=== PATIENT | male | born 1955 | race Caucasian/White ===

== ENCOUNTER 2025-06-27 20:51 | Inpatient (IN) | payer OTHER ==
[~2025-06-27 20:51] MED LIST: Iopamidol 370 76% 100 ML VIAL ONE
[2025-06-27] MEDS ORDERED: Ondansetron PF 4 MG/2 ML Vial ONE (21:29)
[2025-06-27] MEDS ORDERED: HYDROmorphone 0.5 MG/0.5 ML SYRINGE ONE (21:32)
[2025-06-27 21:43] LABS: #Basophils Less than 0.03 10x3/uL (0.0-0.2); #Eosinophils Less than 0.03 10x3/uL (0.0-0.7); #Monocytes 1.13 10x3/uL (0.11-0.59); #Neutrophils 5.80 10x3/uL (1.40-6.50); %Basophils 0.3 % (0.0-1.0); %Eosinophils 0.3 % (0.0-10.0); %Lymphocytes 9.7 % (21.0-51.0); %Monocytes 14.6 % (0.0-10.0); %Neutrophils 74.6 % (42.0-75.0); Hematocrit 31.2 % (42.0-52.0); Hemoglobin 10.8 g/dL (14.0-18.0); Mean Corpuscular Hemoglobin 31.7 pg (27.0-31.0); Mean Corpuscular Volume 91.5 fL (78.0-98.0); Platelet Count 193 10x3/uL (130-400); Red Blood Cell (RBC) Count 3.41 mill/uL (4.70-6.10); White Blood Cell (WBC) Count 7.76 10x3/uL (4.8-10.8)
[2025-06-27 22:10] LABS: ALT (SGPT) 9 U/L (Less than 45); AST (SGOT) 33 U/L (11-34); Albumin 4.0 g/dL (3.1-4.5); Alkaline Phosphatase 70 U/L (40-110); Anion Gap 23 mmol/L (10-20); BUN (Urea Nitrogen) 27 mg/dL (8.4-25.7); Bilirubin, Total 0.6 mg/dL (0.3-1.2); Calc. Creatinine Clearance 0 mL/min (70-130); Calcium 9.6 mg/dL (7.8-10.44); Carbon Dioxide 19 mmol/L (23-31); Chloride 105 mmol/L (98-107); Globulin 3.3 g/dL (2.4-3.5); Glucose 219 mg/dL (83-110); Lipase 8 U/L (8-78); Potassium 3.5 mmol/L (3.5-5.1); Sodium 143 mmol/L (136-145)
[2025-06-27 22:19] LABS: INR-International Normal Ratio 1.7; Prothrombin Time 20.4 sec (12.0-14.7)
[2025-06-27 22:21] LABS: PTT 43.6 sec (22.9-36.1)
[2025-06-28 01:11] LABS: Bacteria/HPF 1+ HPF (None Seen); CAUTI Indications for Culture Acute Hematuria; Glucose, Urine (Dipstick) Normal (Negative); Leukocyte 25 Leu/uL (Negative); Protein, Urine (Dipstick) Negative (Neg-Trace); RBC/HPF 0-3 HPF (0-3); Specific Gravity, Urine 1.027 (1.002-1.036); WBC/HPF 0-3 HPF (0-3)
[2025-06-28 01:12] LABS: Urine Culture Reflex No No
[2025-06-28] MEDS: Metoclopramide HCl 10 MG (2 mL) VIAL IVP PRN (03:10)
[2025-06-28 03:17] VITALS: BMI 23.6
[2025-06-28 04:02] LABS: #Basophils Less than 0.03 10x3/uL (0.0-0.2); #Eosinophils Less than 0.03 10x3/uL (0.0-0.7); #Monocytes 1.05 10x3/uL (0.11-0.59); #Neutrophils 4.32 10x3/uL (1.40-6.50); %Basophils 0.3 % (0.0-1.0); %Eosinophils 0.3 % (0.0-10.0); %Lymphocytes 12.4 % (21.0-51.0); %Monocytes 16.9 % (0.0-10.0); %Neutrophils 69.5 % (42.0-75.0); Hematocrit 33.1 % (42.0-52.0); Hemoglobin 11.0 g/dL (14.0-18.0); Mean Corpuscular Hemoglobin 31.3 pg (27.0-31.0); Mean Corpuscular Volume 94.3 fL (78.0-98.0); Platelet Count 175 10x3/uL (130-400); Red Blood Cell (RBC) Count 3.51 mill/uL (4.70-6.10); White Blood Cell (WBC) Count 6.22 10x3/uL (4.8-10.8)
[2025-06-28 04:38] LABS: ALT (SGPT) 8 U/L (Less than 45); AST (SGOT) 16 U/L (11-34); Albumin 3.9 g/dL (3.1-4.5); Alkaline Phosphatase 67 U/L (40-110); Anion Gap 21 mmol/L (10-20); BUN (Urea Nitrogen) 25 mg/dL (8.4-25.7); Bilirubin, Total 0.5 mg/dL (0.3-1.2); Calc. Creatinine Clearance 50 mL/min (70-130); Calcium 9.4 mg/dL (7.8-10.44); Carbon Dioxide 20 mmol/L (23-31); Chloride 109 mmol/L (98-107); Globulin 2.8 g/dL (2.4-3.5); Glucose 155 mg/dL (83-110); Potassium 3.0 mmol/L (3.5-5.1); Sodium 147 mmol/L (136-145)
[2025-06-28] MEDS: cefTRIAXone\\ROCEPHIN 2 GM in Sodium Chloride 0.9% 100 ML IVPB SCH (04:45)
[2025-06-28 05:14] LABS: Digoxin 0.28 ng/mL (0.8-2.0)
[2025-06-28] MEDS: Tacrolimus 0.5 MG CAP PO SCH (05:26)
[2025-06-28 05:56] LABS: INR-International Normal Ratio 1.7; Prothrombin Time 19.8 sec (12.0-14.7)
[2025-06-28 05:57] LABS: PTT 55.1 sec (22.9-36.1)
[2025-06-28] MEDS: Digoxin 0.125 MG TAB PO SCH ×2 (08:23→09:54)
[2025-06-28] MEDS: Fluconazole 100 MG TAB PO SCH ×2 (08:26→09:54)
[2025-06-28] MEDS ORDERED: Fluconazole 100 MG TAB PO SCH (09:00)
[2025-06-28] MEDS: Senokot S 8.6-50 MG TAB PO SCH (09:55)
[2025-06-28] MEDS ORDERED: hydrALAZINE 20 MG/ML VIAL SLOW IVP PRN (10:05)
[2025-06-28] MEDS ORDERED: Potassium Chloride 40 MEQ in Premix 1 BAG IVPB SCH (10:15)
[2025-06-28] MEDS: Magnesium 2 GM/50 ML(in water) 2 GM in Premix 1 BAG IVPB SCH (10:18)
[2025-06-28] MEDS: MULTIVIT/IRON SULF/FOLIC ACID 1 EACH TAB PO SCH (10:35)
[2025-06-28] MEDS: Cholecalciferol 1,000 UNITS (25 MCG) TAB PO SCH (10:35)
[2025-06-28] MEDS: Pantoprazole 40 MG DR.TAB PO SCH (10:36)
[2025-06-28] MEDS: dilTIAZem 25 MG/5 ML VIAL SLOW IVP SCH (11:30)
[2025-06-28] MEDS: Scopolamine 1 mg/72 hour Patch TD SCH (11:40)
[2025-06-28] MEDS: Potassium Chloride 20 MEQ in Premix 1 BAG IVPB SCH (11:46)
[2025-06-28] MEDS: Diltiazem HCl/D5W 125 MG in Premix 1 BAG IVPB SCH ×2 (12:18→20:48)
[2025-06-28] MEDS: Warfarin Sodium 0.5 MG HALF.TAB PO SCH (17:54)
[2025-06-28] MEDS: QUEtiapine 25 MG TAB PO SCH (20:45)
[2025-06-28 20:56] LABS: Albumin 3.8 g/dL (3.1-4.5); Anion Gap 19 mmol/L (10-20); BUN (Urea Nitrogen) 15 mg/dL (8.4-25.7); BUN/Creatinine Ratio 12.82; Calc. Creatinine Clearance 58 mL/min (70-130); Calcium 9.2 mg/dL (7.8-10.44); Carbon Dioxide 22 mmol/L (23-31); Chloride 111 mmol/L (98-107); Glucose 181 mg/dL (83-110); Magnesium 1.8 mg/dL (1.6-2.6); Potassium 3.5 mmol/L (3.5-5.1); Sodium 148 mmol/L (136-145)
[2025-06-29 04:07] LABS: #Basophils Less than 0.03 10x3/uL (0.0-0.2); #Eosinophils 0.05 10x3/uL (0.0-0.7); #Monocytes 0.70 10x3/uL (0.11-0.59); #Neutrophils 3.23 10x3/uL (1.40-6.50); %Basophils 0.2 % (0.0-1.0); %Eosinophils 1.1 % (0.0-10.0); %Lymphocytes 14.6 % (21.0-51.0); %Monocytes 14.8 % (0.0-10.0); %Neutrophils 68.2 % (42.0-75.0); Hematocrit 31.7 % (42.0-52.0); Hemoglobin 10.3 g/dL (14.0-18.0); Mean Corpuscular Hemoglobin 31.7 pg (27.0-31.0); Mean Corpuscular Volume 97.5 fL (78.0-98.0); Platelet Count 142 10x3/uL (130-400); Red Blood Cell (RBC) Count 3.25 mill/uL (4.70-6.10); White Blood Cell (WBC) Count 4.73 10x3/uL (4.8-10.8)
[2025-06-29 04:40] LABS: Anion Gap 14 mmol/L (10-20); BUN (Urea Nitrogen) 16 mg/dL (8.4-25.7); CRP, High Sensitivity at Bryan 9.42 mg/dL (< or = 0.5); Calc. Creatinine Clearance 58 mL/min (70-130); Carbon Dioxide 24 mmol/L (23-31); Chloride 111 mmol/L (98-107); Potassium 3.3 mmol/L (3.5-5.1); Sodium 146 mmol/L (136-145)
[2025-06-29 04:41] LABS: Calcium 9.1 mg/dL (7.8-10.44); Glucose 105 mg/dL (83-110); Magnesium 1.8 mg/dL (1.6-2.6)
[2025-06-29 04:52] LABS: INR-International Normal Ratio 1.8; Prothrombin Time 20.7 sec (12.0-14.7)
[2025-06-29 04:53] LABS: PTT 54.5 sec (22.9-36.1)
[2025-06-29] MEDS: Potassium Chloride 20 MEQ in Premix 1 BAG IVPB SCH ×2 (06:56→09:32)
[2025-06-29 09:04] LABS: ALT (SGPT) Less than 7 U/L (Less than 45); AST (SGOT) 17 U/L (11-34); Albumin 3.6 g/dL (3.1-4.5); Alkaline Phosphatase 58 U/L (40-110); Bilirubin, Total 0.4 mg/dL (0.3-1.2); Globulin 2.7 g/dL (2.4-3.5)
[2025-06-30 04:15] LABS: #Basophils Less than 0.03 10x3/uL (0.0-0.2); #Eosinophils 0.06 10x3/uL (0.0-0.7); #Monocytes 0.49 10x3/uL (0.11-0.59); #Neutrophils 3.17 10x3/uL (1.40-6.50); %Basophils 0.2 % (0.0-1.0); %Eosinophils 1.4 % (0.0-10.0); %Lymphocytes 12.4 % (21.0-51.0); %Monocytes 11.4 % (0.0-10.0); %Neutrophils 74.1 % (42.0-75.0); Hematocrit 26.0 % (42.0-52.0); Hemoglobin 8.6 g/dL (14.0-18.0); Mean Corpuscular Hemoglobin 31.6 pg (27.0-31.0); Mean Corpuscular Volume 95.6 fL (78.0-98.0); Platelet Count 130 10x3/uL (130-400); Red Blood Cell (RBC) Count 2.72 mill/uL (4.70-6.10); White Blood Cell (WBC) Count 4.28 10x3/uL (4.8-10.8)
[2025-06-30 04:19] LABS: Anion Gap 14 mmol/L (10-20); BUN (Urea Nitrogen) 17 mg/dL (8.4-25.7); Calc. Creatinine Clearance 53 mL/min (70-130); Calcium 8.2 mg/dL (7.8-10.44); Carbon Dioxide 26 mmol/L (23-31); Chloride 106 mmol/L (98-107); Glucose 138 mg/dL (83-110); Potassium 3.4 mmol/L (3.5-5.1); Sodium 143 mmol/L (136-145)
[2025-06-30 04:24] LABS: INR-International Normal Ratio 1.9; Prothrombin Time 22.3 sec (12.0-14.7)
[2025-06-30 04:25] LABS: PTT 61.2 sec (22.9-36.1)
[2025-06-30 05:35] LABS: ALT (SGPT) Less than 7 U/L (Less than 45); AST (SGOT) 14 U/L (11-34); Albumin 3.1 g/dL (3.1-4.5); Alkaline Phosphatase 51 U/L (40-110); Anion Gap 13 mmol/L (10-20); BUN (Urea Nitrogen) 17 mg/dL (8.4-25.7); Bilirubin, Total 0.2 mg/dL (0.3-1.2); Calc. Creatinine Clearance 55 mL/min (70-130); Calcium 8.3 mg/dL (7.8-10.44); Carbon Dioxide 26 mmol/L (23-31); Chloride 105 mmol/L (98-107); Globulin 2.3 g/dL (2.4-3.5); Glucose 136 mg/dL (83-110); Potassium 3.3 mmol/L (3.5-5.1); Sodium 141 mmol/L (136-145)
[2025-06-30] MEDS: HYDROcodone/Acetaminophen 7.5/325 mg Tablet PO PRN (06:18)
[2025-06-30 07:43] LABS: Magnesium 1.2 mg/dL (1.6-2.6)
[2025-06-30 07:44] LABS: Iron 57 ug/dL (65-175); Iron Binding Capacity, Total 206 mcg/dL (261-462)
[2025-06-30] MEDS: Potassium Bicarbonate/Cit Ac 20 MEQ TAB PO SCH (08:16)
[2025-06-30] MEDS: Magnesium Sulfate In Water 4 GM in Premix 1 BAG IVPB SCH (08:17)
[2025-06-30] MEDS ORDERED: Entecavir [Baraclude] 0.5 MG Tablet PO SCH (09:00)
[2025-06-30] MEDS: Methocarbamol 500 MG TAB PO PRN (09:46)
[2025-06-30] MEDS: Sodium Ferric Gluconate 250 MG in Sodium Chloride 0.9% 250 ML 250 ML IVPB SCH (18:25)
[2025-07-01 04:41] LABS: #Basophils Less than 0.03 10x3/uL (0.0-0.2); #Eosinophils 0.12 10x3/uL (0.0-0.7); #Monocytes 0.66 10x3/uL (0.11-0.59); #Neutrophils 3.33 10x3/uL (1.40-6.50); %Basophils 0.4 % (0.0-1.0); %Eosinophils 2.4 % (0.0-10.0); %Lymphocytes 15.3 % (21.0-51.0); %Monocytes 13.4 % (0.0-10.0); %Neutrophils 67.9 % (42.0-75.0); Hematocrit 31.0 % (42.0-52.0); Hemoglobin 10.6 g/dL (14.0-18.0); Mean Corpuscular Hemoglobin 31.8 pg (27.0-31.0); Mean Corpuscular Volume 93.1 fL (78.0-98.0); Platelet Count 133 10x3/uL (130-400); Red Blood Cell (RBC) Count 3.33 mill/uL (4.70-6.10); White Blood Cell (WBC) Count 4.91 10x3/uL (4.8-10.8)
[2025-07-01 04:49] LABS: INR-International Normal Ratio 1.9; Prothrombin Time 21.6 sec (12.0-14.7)
[2025-07-01 04:51] LABS: PTT 60.8 sec (22.9-36.1)
[2025-07-01 05:11] LABS: Anion Gap 11 mmol/L (10-20); BUN (Urea Nitrogen) 15 mg/dL (8.4-25.7); Calc. Creatinine Clearance 61 mL/min (70-130); Calcium 8.5 mg/dL (7.8-10.44); Carbon Dioxide 28 mmol/L (23-31); Chloride 108 mmol/L (98-107); Glucose 103 mg/dL (83-110); Magnesium 1.4 mg/dL (1.6-2.6); Potassium 3.1 mmol/L (3.5-5.1); Sodium 144 mmol/L (136-145)
[2025-07-01 06:21] LABS: ALT (SGPT) Less than 7 U/L (Less than 45); AST (SGOT) 16 U/L (11-34); Albumin 3.2 g/dL (3.1-4.5); Alkaline Phosphatase 55 U/L (40-110); Anion Gap 17 mmol/L (10-20); BUN (Urea Nitrogen) 16 mg/dL (8.4-25.7); Bilirubin, Total 0.2 mg/dL (0.3-1.2); Calc. Creatinine Clearance 65 mL/min (70-130); Calcium 8.4 mg/dL (7.8-10.44); Carbon Dioxide 24 mmol/L (23-31); Chloride 107 mmol/L (98-107); Globulin 2.7 g/dL (2.4-3.5); Glucose 104 mg/dL (83-110); Potassium 3.1 mmol/L (3.5-5.1); Sodium 145 mmol/L (136-145)
[2025-07-01] MEDS: Magnesium Sulfate In Water 4 GM in Premix 1 BAG IVPB SCH ×2 (06:38→08:34)
[2025-07-01] MEDS: PHOS-NAK 1 PKT PACK PO SCH (08:35)
[2025-07-01] MEDS ORDERED: Prochlorperazine 10 MG/2 ML VIAL SLOW IVP PRN (15:04)
[2025-07-01] MEDS ORDERED: Potassium Chloride 40 MEQ in Premix 1 BAG IVPB SCH (15:15)
[2025-07-01] MEDS: Potassium Chloride 20 MEQ in Premix 1 BAG IVPB SCH (15:56)
[2025-07-02 04:10] LABS: #Basophils Less than 0.03 10x3/uL (0.0-0.2); #Eosinophils 0.09 10x3/uL (0.0-0.7); #Monocytes 0.49 10x3/uL (0.11-0.59); #Neutrophils 2.64 10x3/uL (1.40-6.50); %Basophils 0.5 % (0.0-1.0); %Eosinophils 2.3 % (0.0-10.0); %Lymphocytes 16.6 % (21.0-51.0); %Monocytes 12.5 % (0.0-10.0); %Neutrophils 67.6 % (42.0-75.0); Hematocrit 28.3 % (42.0-52.0); Hemoglobin 8.9 g/dL (14.0-18.0); Mean Corpuscular Hemoglobin 31.4 pg (27.0-31.0); Mean Corpuscular Volume 100.0 fL (78.0-98.0); Platelet Count 121 10x3/uL (130-400); Red Blood Cell (RBC) Count 2.83 mill/uL (4.70-6.10); White Blood Cell (WBC) Count 3.91 10x3/uL (4.8-10.8)
[2025-07-02 04:19] LABS: INR-International Normal Ratio 2.0; Prothrombin Time 22.9 sec (12.0-14.7)
[2025-07-02 04:20] LABS: PTT 57.7 sec (22.9-36.1)
[2025-07-02 04:30] LABS: Anion Gap 11 mmol/L (10-20); BUN (Urea Nitrogen) 17 mg/dL (8.4-25.7); Calc. Creatinine Clearance 63 mL/min (70-130); Calcium 8.2 mg/dL (7.8-10.44); Carbon Dioxide 25 mmol/L (23-31); Chloride 109 mmol/L (98-107); Glucose 94 mg/dL (83-110); Magnesium 1.6 mg/dL (1.6-2.6); Potassium 3.8 mmol/L (3.5-5.1); Sodium 141 mmol/L (136-145)
[2025-07-02 04:49] LABS: ALT (SGPT) Less than 7 U/L (Less than 45); AST (SGOT) 13 U/L (11-34); Albumin 3.0 g/dL (3.1-4.5); Alkaline Phosphatase 48 U/L (40-110); Anion Gap 15 mmol/L (10-20); BUN (Urea Nitrogen) 18 mg/dL (8.4-25.7); Bilirubin, Total 0.2 mg/dL (0.3-1.2); Calc. Creatinine Clearance 61 mL/min (70-130); Calcium 8.3 mg/dL (7.8-10.44); Carbon Dioxide 24 mmol/L (23-31); Chloride 109 mmol/L (98-107); Globulin 2.1 g/dL (2.4-3.5); Glucose 94 mg/dL (83-110); Potassium 3.8 mmol/L (3.5-5.1); Sodium 144 mmol/L (136-145)
[2025-07-02 05:07] LABS: Burr Cells SLIGHT = 2-5 cells HPF (0-1); Macrocytosis SLIGHT = 6-15 cells HPF (0-5); Platelet Adequacy Comment Platelets Decreased
[2025-07-02] MEDS: Magnesium Sulfate In Water 4 GM in Premix 1 BAG IVPB SCH (09:29)
[2025-07-02] MEDS: Magnesium Oxide 400 MG TAB PO SCH (09:30)
[2025-07-02] MEDS: hydrALAZINE 20 MG/ML VIAL SLOW IVP PRN (16:48)
[2025-07-03 05:09] LABS: #Basophils Less than 0.03 10x3/uL (0.0-0.2); #Eosinophils 0.12 10x3/uL (0.0-0.7); #Monocytes 0.53 10x3/uL (0.11-0.59); #Neutrophils 3.07 10x3/uL (1.40-6.50); %Basophils 0.2 % (0.0-1.0); %Eosinophils 2.8 % (0.0-10.0); %Lymphocytes 12.4 % (21.0-51.0); %Monocytes 12.4 % (0.0-10.0); %Neutrophils 71.5 % (42.0-75.0); Hematocrit 25.4 % (42.0-52.0); Hemoglobin 8.6 g/dL (14.0-18.0); Mean Corpuscular Hemoglobin 32.2 pg (27.0-31.0); Mean Corpuscular Volume 95.1 fL (78.0-98.0); Platelet Count 112 10x3/uL (130-400); Red Blood Cell (RBC) Count 2.67 mill/uL (4.70-6.10); White Blood Cell (WBC) Count 4.29 10x3/uL (4.8-10.8)
[2025-07-03 05:17] LABS: INR-International Normal Ratio 2.2; PTT 51.2 sec (22.9-36.1); Prothrombin Time 24.7 sec (12.0-14.7)
[2025-07-03 05:19] LABS: Anion Gap 15 mmol/L (10-20); BUN (Urea Nitrogen) 21 mg/dL (8.4-25.7); Calc. Creatinine Clearance 58 mL/min (70-130); Calcium 8.4 mg/dL (7.8-10.44); Carbon Dioxide 26 mmol/L (23-31); Chloride 106 mmol/L (98-107); Glucose 110 mg/dL (83-110); Magnesium 1.6 mg/dL (1.6-2.6); Potassium 3.7 mmol/L (3.5-5.1); Sodium 143 mmol/L (136-145)
[2025-07-03 06:08] LABS: ALT (SGPT) Less than 7 U/L (Less than 45); AST (SGOT) 12 U/L (11-34); Albumin 3.2 g/dL (3.1-4.5); Alkaline Phosphatase 54 U/L (40-110); Anion Gap 16 mmol/L (10-20); BUN (Urea Nitrogen) 21 mg/dL (8.4-25.7); Bilirubin, Total 0.1 mg/dL (0.3-1.2); Calc. Creatinine Clearance 58 mL/min (70-130); Calcium 8.4 mg/dL (7.8-10.44); Carbon Dioxide 25 mmol/L (23-31); Chloride 106 mmol/L (98-107); Globulin 2.2 g/dL (2.4-3.5); Glucose 110 mg/dL (83-110); Potassium 3.7 mmol/L (3.5-5.1); Sodium 143 mmol/L (136-145)
[2025-07-03] MEDS: Magnesium Sulfate In Water 4 GM in Premix 1 BAG IVPB SCH (09:21)
[2025-07-03 13:09] VITALS: BP 154/75; TEMP 98
== END 2025-07-03 16:20 | disposition home or self-care (01) | DRG 392 ==
LOC: ERS 20:51 → 2SE 06-28 02:27 → OBSVTOIN 06-28 05:00
PROVIDERS: ADMIT Internal Medicine; ATTEND Hospitalist
PROC: 3E03329 Introduction of Other Anti-infective into Peripheral Vein, Percutaneous Approach (ICD-10-PCS; principal; 2025-06-28)
PROC: 0T9B70Z Drainage of Bladder with Drainage Device, Via Natural or Artificial Opening (ICD-10-PCS; 2025-07-01)
DX: K52.9 Noninfective gastroenteritis and colitis, unspecified (principal); N17.9 Acute kidney failure, unspecified; Z94.4 Liver transplant status; N30.00 Acute cystitis without hematuria; E87.21 Acute metabolic acidosis; E87.0 Hyperosmolality and hypernatremia; I48.91 Unspecified atrial fibrillation; N18.9 Chronic kidney disease, unspecified; B37.9 Candidiasis, unspecified; E87.6 Hypokalemia; F32.A Depression, unspecified; K74.60 Unspecified cirrhosis of liver; N18.31 Chronic kidney disease, stage 3a; E83.42 Hypomagnesemia; D50.9 Iron deficiency anemia, unspecified; E88.09 Other disorders of plasma-protein metabolism, not elsewhere classified; R33.8 Other retention of urine; B96.20 Unspecified Escherichia coli [E. coli] as the cause of diseases classified elsewhere; D63.1 Anemia in chronic kidney disease; Z98.890 Other specified postprocedural states; Z85.46 Personal history of malignant neoplasm of prostate; Z88.8 Allergy status to other drugs, medicaments and biological substances; Z88.1 Allergy status to other antibiotic agents; Z79.899 Other long term (current) drug therapy; Z79.82 Long term (current) use of aspirin; Z79.01 Long term (current) use of anticoagulants; Z90.79 Acquired absence of other genital organ(s); Z87.442 Personal history of urinary calculi
CPT/HCPCS: 36415; 71045; 71250; 74018; 74177; 80053; 80162; 80197; 81001; 82728; 83540; 83550; 83605; 83690; 83735; 84100; 84145; 84484; 85025; 85610; 85730; 86141; 87040; 87077; 87086; 87186; 93005; 96375; 96376; A4217; G0378; J0360; J0696; J1171; J2550; J2765; J2916; J3475; J3480; J7030; J7050; J7507; J7512; Q9967